=== PATIENT | male | born 1945 | race Caucasian/White ===

== ENCOUNTER 2020-06-05 11:24 | Emergency (ER) | payer OTHER ==
[~2020-06-05] VITALS: Ht 177.8 cm; Wt 97.5 kg
[~2020-06-05 11:24] MED LIST: ASPIRIN81 M1 PO; ATARAX,VISTARIL50 MG PO; BENAZEPRIL10 MG PO; COZAAR50 M1 PO; DEPAKOTE ER500 MG PO; FINASTERIDE5 M1 PO; LIPITOR80 MG PO; LOPRESSOR25 MG PO; MELATONIN3 MG PO; MINIPRESS2 M2 PO; NORVASC5 MG PO; PEPCID40 MG PO; PERPHENAZINE2 MG PO; PLAVIX75 M1 PO; SERTRALINE HYD100 MG PO; TRAZADONE HYDR100 MG PO; VIAGRA25 MG PO; VISTARIL25 MG PO
[2020-06-05 12:10] LABS: HEMATOCRIT 46.4 % (42.0-52.0); MEAN CELL VOLUME 93.2 fl (80.0-94.0); MEAN CORPUSCULAR HGB 29.9 pg (27.0-31.0); MEAN CORPUSCULAR HGB CONC 32.1 g/dl (33.0-37.0); MEAN PLATELET VOLUME 10.3 fl (9.6-12.3); NUCLEATED RED BLOOD CELL 0.2 % (0.0-0.0); PLATELET COUNT AUTOMATED 162 10*3/uL (130-400); RED BLOOD COUNT 4.98 10*6/uL (4.50-5.90); RED CELL DISTRI WIDTH 11.8 % (0-14.5); WHITE BLOOD COUNT 18.9 10*3/uL (4.8-10.8)
[2020-06-05 12:21] LABS: ACT PARTIAL THROMBO TIME 26.5 SECONDS (20.0-32.1)
[2020-06-05 12:24] LABS: ALBUMIN 3.7 gm/dl (3.1-4.5); ALKALINE PHOSPHATASE 96 U/L (45-117); BUN 14 mg/dl (7-24); CHLORIDE 110 mmol/L (98-107); CREATININE 1.03 mg/dL (0.70-1.30); POTASSIUM 4.2 mmol/L (3.5-5.1); SGOT/AST 16 IU/L (3-35); SGPT/ALT 24 U/L (12-78); SODIUM 141 mmol/L (136-145)
[2020-06-05 12:59] LABS: TOTAL CELLS COUNTED 100 #CELLS
[2020-06-05 13:00] LABS: PLATELET SUFFICIENCY NORMAL (NORMAL)
[2020-06-05 16:58] VITALS: BP 119/61
== END 2020-06-05 16:59 | disposition home or self-care (01) ==
LOC: ED 11:24
PROVIDERS: Emergency Medicine
DX: R51 Headache (principal); R79.1 Abnormal coagulation profile; I10 Essential (primary) hypertension; E78.00 Pure hypercholesterolemia, unspecified; M19.90 Unspecified osteoarthritis, unspecified site; I25.2 Old myocardial infarction; Z79.899 Other long term (current) drug therapy; Z79.82 Long term (current) use of aspirin

== ENCOUNTER 2020-11-27 00:38 | Emergency (ER) | payer OTHER ==
[~2020-11-27] VITALS: Ht 177.8 cm; Wt 98.9 kg
[2020-11-27 00:48] VITALS: BP 158/84
[2020-11-27 01:35] LABS: HEMATOCRIT 48.8 % (42.0-52.0); MEAN CELL VOLUME 95.5 fl (80.0-94.0); MEAN CORPUSCULAR HGB 29.2 pg (27.0-31.0); MEAN CORPUSCULAR HGB CONC 30.5 g/dl (33.0-37.0); MEAN PLATELET VOLUME 12.3 fl (9.6-12.3); PLATELET COUNT AUTOMATED 142 10*3/uL (130-400); RED BLOOD COUNT 5.11 10*6/uL (4.50-5.90); RED CELL DISTRI WIDTH 13.2 % (0-14.5)
[2020-11-27 01:39] LABS: WHITE BLOOD COUNT 108.2 10*3/uL (4.8-10.8)
[2020-11-27 01:52] LABS: PLATELET SUFFICIENCY LOW (NORMAL); TOTAL CELLS COUNTED 100 #CELLS
[2020-11-27 01:54] LABS: ALBUMIN 3.6 gm/dl (3.1-4.5); ALKALINE PHOSPHATASE 108 U/L (45-117); BUN 16 mg/dl (7-24); CHLORIDE 110 mmol/L (98-107); CREATININE 1.23 mg/dL (0.70-1.30); LIPASE 201 U/L (73-393); POTASSIUM 4.4 mmol/L (3.5-5.1); SGOT/AST 22 IU/L (3-35); SGPT/ALT 28 U/L (12-78); SODIUM 141 mmol/L (136-145); TOTAL PROTEIN 7.2 gm/dL (6.4-8.2)
[2020-11-27 02:18] LABS: BILIRUBIN Negative (Negative); BLOOD 2+ (Negative); CLARITY Clear (Clear); COLOR Yellow (Yellow); GLUCOSE Negative (Negative); KETONE Negative (Negative); LEUKO ESTERASE Negative (Negative); NITRITE Negative (Negative); PH 6.5 (4.5-8.0); SPECIFIC GRAVITY 1.015 (1.001-1.030); UROBILINOGEN 0.2 E.U./dl (0.0-1.0)
[2020-11-27 02:34] LABS: RBC 31-40 rbc/hpf (0-2)
[2020-11-27 02:38] LABS: WBC 0-2 wbc/hpf (0-5)
[2020-11-27] MEDS ORDERED: NORCO 5-325 TA1 EACH PO (05:04)
== END 2020-11-27 06:31 | disposition home or self-care (01) ==
LOC: ED 00:38
PROVIDERS: Physician Assistant
DX: K80.80 Other cholelithiasis without obstruction (principal); D72.820 Lymphocytosis (symptomatic); I71.2 Thoracic aortic aneurysm, without rupture; Z79.899 Other long term (current) drug therapy; Z79.82 Long term (current) use of aspirin

== ENCOUNTER 2021-07-16 07:38 | Emergency (ER) | payer OTHER ==
[~2021-07-16] VITALS: Wt 98.9 kg
[~2021-07-16 07:38] MED LIST changes: +NORCO 5-325 TA1 EACH PO
[2021-07-16 08:24] LABS: MEAN CELL VOLUME 93.4 fl (80.0-94.0); MEAN CORPUSCULAR HGB 29.8 pg (27.0-31.0); MEAN CORPUSCULAR HGB CONC 31.9 g/dl (33.0-37.0); MEAN PLATELET VOLUME 12.8 fl (9.6-12.3); PLATELET COUNT AUTOMATED 153 10*3/uL (130-400); RED BLOOD COUNT 5.14 10*6/uL (4.50-5.90); RED CELL DISTRI WIDTH 12.6 % (0-14.5)
[2021-07-16 08:27] LABS: WHITE BLOOD COUNT 46.5 10*3/uL (4.8-10.8)
[2021-07-16 08:35] LABS: ALBUMIN 3.6 gm/dl (3.1-4.5); ALKALINE PHOSPHATASE 117 U/L (45-117); BUN 16 mg/dl (7-24); CHLORIDE 108 mmol/L (98-107); CREATININE 1.26 mg/dL (0.70-1.30); LIPASE 175 U/L (73-393); POTASSIUM 4.7 mmol/L (3.5-5.1); SGOT/AST 18 IU/L (3-35); SGPT/ALT 22 U/L (12-78); SODIUM 139 mmol/L (136-145)
[2021-07-16 08:42] LABS: TROPONIN I < 0.015 ng/ml (<0.045)
[2021-07-16 08:43] LABS: PLATELET SUFFICIENCY NORMAL (NORMAL); TOTAL CELLS COUNTED 100 #CELLS
[2021-07-16 09:25] LABS: BILIRUBIN Negative (Negative); BLOOD 2+ (Negative); CLARITY Clear (Clear); COLOR Yellow (Yellow); GLUCOSE Negative (Negative); KETONE Negative (Negative); LEUKO ESTERASE Negative (Negative); NITRITE Negative (Negative); PH 7.5 (4.5-8.0)
[2021-07-16 09:31] LABS: BACTERIA TRACE; EPITHELIAL CELLS 0-2; RBC 21-30 rbc/hpf (0-2); WBC 0-2 wbc/hpf (0-5)
[2021-07-16 13:09] VITALS: BP 150/77
== END 2021-07-16 13:43 | disposition short-term general hospital (02) ==
LOC: ED 07:38
PROVIDERS: Emergency Medicine
DX: N20.1 Calculus of ureter (principal); Z79.899 Other long term (current) drug therapy; Z79.82 Long term (current) use of aspirin

== ENCOUNTER → 2022-03-31 | Outpatient (CLI) | payer OTHER ==
[2022-03-31 11:49] LABS: HEMATOCRIT 47.7 % (42.0-52.0); MEAN CELL VOLUME 93.9 fl (80.0-94.0); MEAN CORPUSCULAR HGB 29.7 pg (27.0-31.0); MEAN CORPUSCULAR HGB CONC 31.7 g/dl (33.0-37.0); MEAN PLATELET VOLUME 12.3 fl (9.6-12.3); PLATELET COUNT AUTOMATED 175 10*3/uL (130-400); RED BLOOD COUNT 5.08 10*6/uL (4.50-5.90); RED CELL DISTRI WIDTH 12.9 % (0-14.5); WHITE BLOOD COUNT 34.2 10*3/uL (4.8-10.8)
[2022-03-31 11:50] LABS: BILIRUBIN Negative (Negative); BLOOD 2+ (Negative); CLARITY Turbid (Clear); COLOR Yellow (Yellow); GLUCOSE Negative (Negative); KETONE Negative (Negative); LEUKO ESTERASE 3+ (Negative); NITRITE Positive (Negative); PH 6.5 (4.5-8.0); SPECIFIC GRAVITY 1.015 (1.001-1.030)
[2022-03-31 11:56] LABS: MANUAL DIFF REFLEX YES
[2022-03-31 11:58] LABS: BACTERIA 3+; WBC TNTC wbc/hpf (0-5)
[2022-03-31 12:00] LABS: ACT PARTIAL THROMBO TIME 27.6 SECONDS (20.0-32.1)
[2022-03-31 12:04] LABS: ALKALINE PHOSPHATASE 120 U/L (45-117); BUN 15 mg/dl (7-24); CHLORIDE 109 mmol/L (98-107); CREATININE 1.37 mg/dL (0.70-1.30); POTASSIUM 4.3 mmol/L (3.5-5.1); SGOT/AST 17 IU/L (3-35); SGPT/ALT 22 U/L (12-78); SODIUM 142 mmol/L (136-145)
[2022-03-31 12:08] LABS: OVALOCYTES FEW; PLATELET SUFFICIENCY NORMAL (NORMAL); POLYCHROMASIA SLIGHT; TOTAL CELLS COUNTED 100 #CELLS
== END | disposition home or self-care (01) ==
LOC: LAB 11:21
PROVIDERS: ATTEND Orthopaedic Surgery
DX: Z01.818 Encounter for other preprocedural examination (principal); M16.11 Unilateral primary osteoarthritis, right hip

== ENCOUNTER 2023-09-05 18:00 | Emergency (ER) | payer OTHER ==
[~2023-09-05] VITALS: Ht 177.8 cm; Wt 102.1 kg
[~2023-09-05 18:00] MED LIST changes: +AMLODIPINE BESYL5 MG PO; +ANTI-DIARRHEAL2 MG PO; +BUSPIRONE10 MG PO; +COZAAR25 M1 PO; +IMBRUVICA140 M1 PO; +IMDUR SA30 MG PO; +LOSARTAN POTASS50 M1 PO; +TRAZODONE50 MG PO
[2023-09-05 19:01] LABS: HEMATOCRIT 44.9 % (42.0-52.0); MEAN CELL VOLUME 94.3 fl (80.0-94.0); MEAN CORPUSCULAR HGB 30.9 pg (27.0-31.0); MEAN CORPUSCULAR HGB CONC 32.7 g/dl (33.0-37.0); MEAN PLATELET VOLUME 12.1 fl (9.6-12.3); PLATELET COUNT AUTOMATED 165 10*3/uL (130-400); RED BLOOD COUNT 4.76 10*6/uL (4.50-5.90); RED CELL DISTRI WIDTH 12.3 % (0-14.5); WHITE BLOOD COUNT 17.3 10*3/uL (4.8-10.8)
[2023-09-05 19:13] LABS: MANUAL DIFF REFLEX YES
[2023-09-05 19:22] LABS: ALKALINE PHOSPHATASE 103 U/L (46-116); BUN 15 mg/dl (9-23); CHLORIDE 106 mmol/L (98-107); POTASSIUM 3.9 mmol/L (3.4-5.1); SGPT/ALT 13 U/L (10-49); TOTAL PROTEIN 6.2 gm/dL (6.0-8.0)
[2023-09-05 19:33] LABS: PLATELET SUFFICIENCY NORMAL (NORMAL); TOTAL CELLS COUNTED 100 #CELLS
[2023-09-05 20:56] VITALS: BP 148/69
== END 2023-09-05 22:41 | disposition home or self-care (01) ==
LOC: ED 18:00
PROVIDERS: Internal Medicine
DX: R07.89 Other chest pain (principal); D72.829 Elevated white blood cell count, unspecified; E44.1 Mild protein-calorie malnutrition; I12.9 Hypertensive chronic kidney disease with stage 1 through stage 4 chronic kidney disease, or unspecified chronic kidney disease; N18.31 Chronic kidney disease, stage 3a; Z87.442 Personal history of urinary calculi; E78.5 Hyperlipidemia, unspecified; I25.2 Old myocardial infarction; F32.A Depression, unspecified; Z68.1 Body mass index [BMI] 19.9 or less, adult

== ENCOUNTER 2023-10-02 07:44 | Emergency (ER) | payer OTHER ==
[~2023-10-02] VITALS: Ht 177.8 cm; Wt 102.1 kg
[2023-10-02] MEDS ORDERED: LIPITOR80 MG PO (08:20)
[2023-10-02] MEDS ORDERED: COZAAR50 M1 PO (08:21)
[2023-10-02] MEDS ORDERED: PEPCID40 MG PO (08:21)
[2023-10-02] MEDS ORDERED: IMBRUVICA PO (08:21)
[2023-10-02] MEDS ORDERED: FINASTERIDE5 M1 PO (08:21)
[2023-10-02] MEDS ORDERED: ASPIRIN81 M1 PO (08:21)
[2023-10-02] MEDS ORDERED: BUSPIRONE10 MG PO (08:22)
[2023-10-02] MEDS ORDERED: PRAZOSIN HCL2 MG PO (08:23)
[2023-10-02] MEDS ORDERED: SERTRALINE HYD100 MG PO (08:24)
[2023-10-02] MEDS ORDERED: MELATONIN3 MG PO (08:24)
[2023-10-02] MEDS ORDERED: ANTI-DIARRHEAL2 MG PO (08:25)
[2023-10-02 08:35] LABS: HEMATOCRIT 49.8 % (42.0-52.0); MEAN CELL VOLUME 95.2 fl (80.0-94.0); MEAN CORPUSCULAR HGB CONC 32.5 g/dl (33.0-37.0); MEAN PLATELET VOLUME 12.4 fl (9.6-12.3); PLATELET COUNT AUTOMATED 153 10*3/uL (130-400); RED BLOOD COUNT 5.23 10*6/uL (4.50-5.90); RED CELL DISTRI WIDTH 12.2 % (0-14.5)
[2023-10-02 08:43] LABS: MANUAL DIFF REFLEX YES
[2023-10-02 08:49] LABS: ACT PARTIAL THROMBO TIME 27.9 SECONDS (20.0-32.1)
[2023-10-02 09:03] LABS: ATYPICAL LYMPHS 1 % (0-0); TOTAL CELLS COUNTED 100 #CELLS
[2023-10-02 09:04] LABS: BURR CELLS FEW; PLATELET SUFFICIENCY NORMAL (NORMAL)
[2023-10-02 09:39] VITALS: BP 119/63
[2023-10-02 10:41] LABS: ALKALINE PHOSPHATASE 107 U/L (46-116); BUN 18 mg/dl (9-23); CHLORIDE 107 mmol/L (98-107); POTASSIUM 3.7 mmol/L (3.4-5.1); SGPT/ALT 12 U/L (5-49); TOTAL PROTEIN 6.4 gm/dL (6.0-8.0)
[2023-10-02] MEDS ORDERED: XARELTO1 EACH PO (13:01)
== END 2023-10-02 13:06 | disposition home or self-care (01) ==
LOC: ED 07:44
PROVIDERS: Family Medicine
DX: I26.99 Other pulmonary embolism without acute cor pulmonale (principal); C91.10 Chronic lymphocytic leukemia of B-cell type not having achieved remission; M25.511 Pain in right shoulder; F32.A Depression, unspecified; I10 Essential (primary) hypertension; I25.2 Old myocardial infarction; E78.5 Hyperlipidemia, unspecified; Z87.442 Personal history of urinary calculi; Z90.49 Acquired absence of other specified parts of digestive tract; Z98.890 Other specified postprocedural states; Z95.5 Presence of coronary angioplasty implant and graft; F17.290 Nicotine dependence, other tobacco product, uncomplicated

== ENCOUNTER 2023-10-10 03:27 | Emergency (ER) | payer OTHER ==
[~2023-10-10] VITALS: Ht 177.8 cm; Wt 54.4 kg
[~2023-10-10 03:27] MED LIST changes: +IMBRUVICA PO; +PRAZOSIN HCL2 MG PO; +XARELTO1 EACH PO
[2023-10-10 03:46] VITALS: BP 128/97
[2023-10-10 04:10] LABS: BILIRUBIN 1+ (Negative); BLOOD 2+ (Negative); CLARITY Turbid (Clear); COLOR Red (Yellow); GLUCOSE Negative (Negative); KETONE Negative (Negative); LEUKO ESTERASE 2+ (Negative); NITRITE Negative (Negative); UROBILINOGEN 0.2 E.U./dl (0.0-1.0)
[2023-10-10 04:19] LABS: HEMATOCRIT 48.6 % (42.0-52.0); MEAN CELL VOLUME 94.4 fl (80.0-94.0); MEAN CORPUSCULAR HGB 30.5 pg (27.0-31.0); MEAN CORPUSCULAR HGB CONC 32.3 g/dl (33.0-37.0); MEAN PLATELET VOLUME 11.8 fl (9.6-12.3); PLATELET COUNT AUTOMATED 230 10*3/uL (130-400); RED BLOOD COUNT 5.15 10*6/uL (4.50-5.90); RED CELL DISTRI WIDTH 12.1 % (0-14.5); WHITE BLOOD COUNT 20.6 10*3/uL (4.8-10.8)
[2023-10-10 04:22] LABS: MANUAL DIFF REFLEX YES
[2023-10-10 04:24] LABS: RBC TNTC rbc/hpf (0-2); YEAST 2+
[2023-10-10 04:25] LABS: WBC 16-20 wbc/hpf (0-5)
[2023-10-10 04:32] LABS: ACT PARTIAL THROMBO TIME 39.8 SECONDS (20.0-32.1)
[2023-10-10 04:39] LABS: ALKALINE PHOSPHATASE 115 U/L (46-116); BUN 20 mg/dl (9-23); CHLORIDE 108 mmol/L (98-107); LIPASE 87 U/L (12-53); POTASSIUM 3.6 mmol/L (3.4-5.1); SGPT/ALT 19 U/L (5-49); TOTAL PROTEIN 6.4 gm/dL (6.0-8.0)
[2023-10-10 04:42] LABS: ATYPICAL LYMPHS 4 % (0-0); PLATELET SUFFICIENCY NORMAL (NORMAL); TOTAL CELLS COUNTED 100 #CELLS
[2023-10-10] MEDS ORDERED: FLUONAZOLE200 M1 PO (05:08)
== END 2023-10-10 05:37 | disposition home or self-care (01) ==
LOC: ED 03:27
PROVIDERS: Internal Medicine
DX: R39.198 Other difficulties with micturition (principal); F32.A Depression, unspecified; I10 Essential (primary) hypertension; I25.2 Old myocardial infarction; E78.5 Hyperlipidemia, unspecified; Z87.442 Personal history of urinary calculi; Z98.890 Other specified postprocedural states; Z90.49 Acquired absence of other specified parts of digestive tract; Z95.5 Presence of coronary angioplasty implant and graft

== ENCOUNTER 2023-10-17 16:39 | Emergency (ER) | payer OTHER ==
[~2023-10-17] VITALS: Ht 177.8 cm; Wt 102.1 kg
[~2023-10-17 16:39] MED LIST changes: +FLUONAZOLE200 M1 PO
[2023-10-17 16:48] VITALS: BP 143/70
[2023-10-17 20:15] LABS: HEMATOCRIT 41.7 % (42.0-52.0); MEAN CELL VOLUME 95.9 fl (80.0-94.0); MEAN CORPUSCULAR HGB 31.7 pg (27.0-31.0); MEAN CORPUSCULAR HGB CONC 33.1 g/dl (33.0-37.0); MEAN PLATELET VOLUME 11.4 fl (9.6-12.3); PLATELET COUNT AUTOMATED 256 10*3/uL (130-400); RED BLOOD COUNT 4.35 10*6/uL (4.50-5.90); RED CELL DISTRI WIDTH 12.2 % (0-14.5); WHITE BLOOD COUNT 20.6 10*3/uL (4.8-10.8)
[2023-10-17 20:17] LABS: MANUAL DIFF REFLEX YES
[2023-10-17 20:27] LABS: ACT PARTIAL THROMBO TIME 38.1 SECONDS (20.0-32.1)
[2023-10-17 20:34] LABS: ALKALINE PHOSPHATASE 133 U/L (46-116); BUN 23 mg/dl (9-23); CHLORIDE 104 mmol/L (98-107); POTASSIUM 3.9 mmol/L (3.4-5.1); SGPT/ALT 32 U/L (5-49); TOTAL PROTEIN 6.3 gm/dL (6.0-8.0)
[2023-10-17 20:48] LABS: ATYPICAL LYMPHS 3 % (0-0); PLATELET SUFFICIENCY NORMAL (NORMAL); TOTAL CELLS COUNTED 100 #CELLS
[2023-10-17 20:49] LABS: OVALOCYTES FEW; ROULEAUX SLIGHT
[2023-10-17 21:03] LABS: BILIRUBIN Negative (Negative); BLOOD 3+ (Negative); CLARITY Turbid (Clear); COLOR Red (Yellow); GLUCOSE Negative (Negative); KETONE Negative (Negative); LEUKO ESTERASE 2+ (Negative); NITRITE Negative (Negative); SPECIFIC GRAVITY 1.015 (1.001-1.030)
[2023-10-17 21:19] LABS: BACTERIA 2+; RBC TNTC rbc/hpf (0-2)
[2023-10-17] MEDS ORDERED: SEPTDS PO (21:43)
== END 2023-10-17 21:55 | disposition home or self-care (01) ==
LOC: ED 16:39
PROVIDERS: Physician Assistant Medical
DX: R31.9 Hematuria, unspecified (principal); F32.A Depression, unspecified; I10 Essential (primary) hypertension; I25.2 Old myocardial infarction; E78.5 Hyperlipidemia, unspecified; M19.90 Unspecified osteoarthritis, unspecified site; Z87.442 Personal history of urinary calculi; Z98.890 Other specified postprocedural states; Z95.5 Presence of coronary angioplasty implant and graft; Z90.49 Acquired absence of other specified parts of digestive tract

== ENCOUNTER 2023-11-18 05:54 | Emergency (ER) | payer OTHER ==
[~2023-11-18] VITALS: Wt 104.3 kg
[~2023-11-18 05:54] MED LIST changes: +SEPTDS PO
[2023-11-18 06:39] LABS: MEAN CELL VOLUME 100.5 fl (80.0-94.0); MEAN CORPUSCULAR HGB 28.9 pg (27.0-31.0); MEAN CORPUSCULAR HGB CONC 28.8 g/dl (33.0-37.0); MEAN PLATELET VOLUME 10.6 fl (9.6-12.3); NUCLEATED RED BLOOD CELL 0.1 % (0.0-0.0); PLATELET COUNT AUTOMATED 305 10*3/uL (130-400); RED BLOOD COUNT 2.04 10*6/uL (4.50-5.90); RED CELL DISTRI WIDTH 15.2 % (0-14.5); WHITE BLOOD COUNT 20.1 10*3/uL (4.8-10.8)
[2023-11-18 06:47] LABS: HEMATOCRIT 20.5 % (42.0-52.0); MANUAL DIFF REFLEX YES
[2023-11-18 06:48] LABS: ACT PARTIAL THROMBO TIME 25.4 SECONDS (20.0-32.1)
[2023-11-18 06:51] LABS: BILIRUBIN Negative (Negative); BLOOD Negative (Negative); CLARITY Clear (Clear); COLOR Yellow (Yellow); GLUCOSE Negative (Negative); KETONE Negative (Negative); LEUKO ESTERASE Negative (Negative); NITRITE Negative (Negative); UROBILINOGEN 0.2 E.U./dl (0.0-1.0)
[2023-11-18 07:18] LABS: ALKALINE PHOSPHATASE 104 U/L (46-116); BUN 35 mg/dl (9-23); CHLORIDE 109 mmol/L (98-107); POTASSIUM 3.7 mmol/L (3.4-5.1); SGPT/ALT 10 U/L (5-49); TOTAL PROTEIN 4.7 gm/dL (6.0-8.0)
[2023-11-18 07:39] LABS: PLATELET SUFFICIENCY NORMAL (NORMAL); POLYCHROMASIA SLIGHT; TOTAL CELLS COUNTED 100 #CELLS
[2023-11-18 07:40] LABS: OVALOCYTES FEW; TARGET CELLS FEW
[2023-11-18 09:49] VITALS: BP 105/57
== END 2023-11-18 09:51 | disposition short-term general hospital (02) ==
LOC: ED 05:54
PROVIDERS: Internal Medicine
DX: K92.2 Gastrointestinal hemorrhage, unspecified (principal); F32.A Depression, unspecified; I10 Essential (primary) hypertension; I25.2 Old myocardial infarction; I25.10 Atherosclerotic heart disease of native coronary artery without angina pectoris; Z87.442 Personal history of urinary calculi; E78.5 Hyperlipidemia, unspecified; Z98.890 Other specified postprocedural states; Z90.49 Acquired absence of other specified parts of digestive tract; Z95.5 Presence of coronary angioplasty implant and graft

== ENCOUNTER 2024-02-27 18:10 | Inpatient (IN) | payer OTHER, MEDICARE ==
[~2024-02-27] VITALS: Ht 177.8 cm; Wt 99.1 kg
[~2024-02-27 18:10] MED LIST changes: +CHLORTHALIDONE25 MG PO; -IMBRUVICA PO; +IMBRUVICA420 MG PO; +MINIPRESS2 M1 PO; +XARE15TA PO; +ZOLOFT100 MG PO
[2024-02-27 18:25] VITALS: BP 157/101
[2024-02-27] MEDS ORDERED: [UNRECOGNIZED DRUG - OTHER] PO (18:31)
[2024-02-27] MEDS ORDERED: LIPITOR40 MG PO (18:34)
[2024-02-27] MEDS ORDERED: ELIQUIS5 M1 PO (18:39)
[2024-02-27 18:40] LABS: BASO % 0.5 % (0.0-1.0); EOS # 0.4 10*3/uL (0.0-0.4); HEMATOCRIT 42.9 % (42.0-52.0); LYMPH # 1.4 10*3/uL (1.3-4.4); LYMPH % 20.9 % (27.0-41.0); MEAN CELL VOLUME 89.2 fl (80.0-94.0); MEAN CORPUSCULAR HGB CONC 29.1 g/dl (33.0-37.0); MONO # 0.5 10*3/uL (0.1-1.0); MONO % 7.7 % (3.0-9.0); NEUT # 4.3 10*3/uL (2.3-7.9); NEUT % 64.7 % (47.0-73.0); PLATELET COUNT AUTOMATED 180 10*3/uL (130-400); RED BLOOD COUNT 4.81 10*6/uL (4.50-5.90); RED CELL DISTRI WIDTH 18.9 % (0-14.5); WHITE BLOOD COUNT 6.7 10*3/uL (4.8-10.8)
[2024-02-27 18:50] LABS: ACT PARTIAL THROMBO TIME 31.3 SECONDS (20.0-32.1)
[2024-02-27 18:57] LABS: ALKALINE PHOSPHATASE 95 U/L (46-116); BUN 19 mg/dl (9-23); CHLORIDE 108 mmol/L (98-107); POTASSIUM 4.1 mmol/L (3.4-5.1); SGPT/ALT 29 U/L (5-49); TOTAL PROTEIN 6.6 gm/dL (6.0-8.0)
[2024-02-27] MEDS ORDERED: IOHEXOL 350 MG/ML 100 ML VIAL IV ONE (19:00)
[2024-02-27] MEDS ORDERED: SODIUM CHLORIDE 0.9% 100 ML BAG IV ONE (19:00)
[2024-02-27 19:22] VITALS: BP 164/104
[2024-02-27] MEDS ORDERED: Metoprolol Tartrate 25 MG TAB PO SCH (22:25)
[2024-02-27] MEDS ORDERED: hydrOXYzine pamoate 25 MG CAP PO ONE (22:25)
[2024-02-27] MEDS ORDERED: ATORVASTATIN CALCIUM 80 MG TAB PO SCH (22:25)
[2024-02-27] MEDS ORDERED: Magnesium Hydroxide 30 ML UDC PO PRN (22:30)
[2024-02-27] MEDS ORDERED: Acetaminophen/Hydrocodone 5 MG/325 MG TABLET PO PRN (22:30)
[2024-02-27] MEDS ORDERED: ACETAMINOPHEN 650 MG SUPP R PRN (22:30)
[2024-02-27] MEDS ORDERED: BISACODYL 10 MG SUPP R PRN (22:30)
[2024-02-27] MEDS ORDERED: ACETAMINOPHEN 325 MG TAB PO PRN (22:30)
[2024-02-27] MEDS ORDERED: TEMAZEPAM 15 MG CAP PO PRN (22:30)
[2024-02-27] MEDS ORDERED: MORPHINE Sulfate 2 MG/ML SYR IV PRN (22:30)
[2024-02-27] MEDS ORDERED: Ondansetron Hydrochloride 4 MG/2 ML VIAL IV PRN (22:30)
[2024-02-27] MEDS ORDERED: BISACODYL 5 MG TAB PO PRN (22:30)
[2024-02-27] MEDS ORDERED: HEPARIN SODIUM 250 ML IV SCH (23:10)
[2024-02-27] MEDS ORDERED: FUROSEMIDE 20 MG/2 ML VIAL IV ONE (23:10)
[2024-02-27 23:16] VITALS: BP 155/69
[2024-02-28] VITALS (8 sets, daily range): BP systolic 122–149; BP diastolic 69–109
[2024-02-28] MEDS ORDERED: hydrOXYzine pamoate 25 MG CAP PO PRN (02:40)
[2024-02-28 06:14] LABS: BASO % 0.6 % (0.0-1.0); EOS # 0.4 10*3/uL (0.0-0.4); EOS % 5.9 % (1.0-4.0); LYMPH # 1.7 10*3/uL (1.3-4.4); LYMPH % 23.1 % (27.0-41.0); MEAN CELL VOLUME 88.4 fl (80.0-94.0); MEAN CORPUSCULAR HGB 26.5 pg (27.0-31.0); MEAN PLATELET VOLUME 11.2 fl (9.6-12.3); MONO # 0.6 10*3/uL (0.1-1.0); MONO % 8.7 % (3.0-9.0); NEUT # 4.4 10*3/uL (2.3-7.9); NEUT % 61.4 % (47.0-73.0); PLATELET COUNT AUTOMATED 189 10*3/uL (130-400); RED BLOOD COUNT 4.98 10*6/uL (4.50-5.90); RED CELL DISTRI WIDTH 19.1 % (0-14.5); WHITE BLOOD COUNT 7.1 10*3/uL (4.8-10.8)
[2024-02-28 06:58] LABS: BUN 17 mg/dl (9-23); CHLORIDE 109 mmol/L (98-107); CHOLESTEROL 137 mg/dL (<200); LDL CHOLESTEROL 74 mg/dL (9-159); POTASSIUM 4.5 mmol/L (3.4-5.1); TRIGLYCERIDES 93 mg/dl (<150)
[2024-02-28 07:21] LABS: VITAMIN D, 25-HYDROXY 38.7 ng/mL (30-100)
[2024-02-28] MEDS ORDERED: ASPIRIN ENTERIC COATED 81 MG TAB PO SCH (10:00)
[2024-02-28] MEDS ORDERED: FUROSEMIDE 20 MG/2 ML VIAL IV SCH (10:00)
[2024-02-28] MEDS ORDERED: ASPIRIN 325 MG TAB PO SCH (10:00)
[2024-02-28] MEDS ORDERED: FUROSEMIDE 20 MG IV SCH (10:00)
[2024-02-28] MEDS ORDERED: ATORVASTATIN CALCIUM 40 MG TABLET PO SCH (10:00)
[2024-02-28] MEDS ORDERED: METOPROLOL SUCCINATE XR 25 MG TAB PO SCH (11:05)
[2024-02-28] MEDS ORDERED: SACUBITRIL/VALSARTAN 24 MG-26 MG TABLET PO SCH (18:00)
[2024-02-28] MEDS ORDERED: Prazosin Hydrochloride 1 MG CAP PO SCH (22:00)
[2024-02-28] MEDS ORDERED: Melatonin 3 MG TABLET PO SCH (22:00)
[2024-02-28] MEDS ORDERED: busPIRone Hydrochloride 10 MG TAB PO SCH (22:00)
[2024-02-29] VITALS: BP 126/79
[2024-02-29] MEDS ORDERED: FINASTERIDE 5 MG TAB PO SCH (10:00)
[2024-02-29] MEDS ORDERED: EMPAGLIFLOZIN 10 MG TABLET PO SCH (10:00)
[2024-02-29] MEDS ORDERED: Losartan Potassium 50 MG TAB PO SCH (10:00)
[2024-02-29] MEDS ORDERED: METOPROLOL SUCCINATE XR 50 MG TAB PO SCH (10:00)
== END 2024-02-29 05:42 | disposition short-term general hospital (02) | DRG 280 ==
LOC: ED 18:10 → EDHOLD 21:10 → ICCU 02-28 07:34 → EDHOLD 02-28 07:34 → ICCU 02-28 07:34 → 4E 02-28 15:57
PROVIDERS: Emergency Medicine; Student in an Organized Health Care Education/Training Program; ADMIT Internal Medicine; ATTEND Internal Medicine
DX: I21.4 Non-ST elevation (NSTEMI) myocardial infarction (principal); I50.23 Acute on chronic systolic (congestive) heart failure; I13.0 Hypertensive heart and chronic kidney disease with heart failure and stage 1 through stage 4 chronic kidney disease, or unspecified chronic kidney disease; F41.8 Other specified anxiety disorders; E87.8 Other disorders of electrolyte and fluid balance, not elsewhere classified; D50.9 Iron deficiency anemia, unspecified; Z96.642 Presence of left artificial hip joint; E78.5 Hyperlipidemia, unspecified; N18.31 Chronic kidney disease, stage 3a; N40.1 Benign prostatic hyperplasia with lower urinary tract symptoms; I25.118 Atherosclerotic heart disease of native coronary artery with other forms of angina pectoris; K21.00 Gastro-esophageal reflux disease with esophagitis, without bleeding; Z86.718 Personal history of other venous thrombosis and embolism; Z86.711 Personal history of pulmonary embolism; Z90.49 Acquired absence of other specified parts of digestive tract; Z80.1 Family history of malignant neoplasm of trachea, bronchus and lung; Z95.5 Presence of coronary angioplasty implant and graft; Z79.82 Long term (current) use of aspirin; Z79.899 Other long term (current) drug therapy

== ENCOUNTER 2025-05-24 13:05 | Emergency (ER) | payer OTHER ==
[~2025-05-24] VITALS: Ht 177.8 cm; Wt 102.1 kg
[~2025-05-24 13:05] MED LIST changes: +ELIQUIS5 M1 PO; +LIPITOR40 MG PO; +[UNRECOGNIZED DRUG - OTHER] PO
[2025-05-24 13:31] VITALS: BP 115/68
[2025-05-24] MEDS ORDERED: TRANEXAMIC ACID 1,000 MG/10 ML VIAL T ONE (13:50)
== END 2025-05-24 15:06 | disposition home or self-care (01) ==
LOC: ED 13:05
DX: K91.840 Postprocedural hemorrhage of a digestive system organ or structure following a digestive system procedure (principal); I13.0 Hypertensive heart and chronic kidney disease with heart failure and stage 1 through stage 4 chronic kidney disease, or unspecified chronic kidney disease; N18.31 Chronic kidney disease, stage 3a; I50.9 Heart failure, unspecified; E78.5 Hyperlipidemia, unspecified; I25.2 Old myocardial infarction; F41.9 Anxiety disorder, unspecified; K21.9 Gastro-esophageal reflux disease without esophagitis; M19.90 Unspecified osteoarthritis, unspecified site; Z87.442 Personal history of urinary calculi; Z79.899 Other long term (current) drug therapy; Z79.82 Long term (current) use of aspirin; Z90.49 Acquired absence of other specified parts of digestive tract; Z95.5 Presence of coronary angioplasty implant and graft; Z98.890 Other specified postprocedural states